=== PATIENT | male | born 1965 | race Caucasian/White ===

== ENCOUNTER 2016-12-30 13:14 | Emergency (ER) | payer MEDICARE, OTHER ==
[~2016-12-30] VITALS: Ht 127 cm; Wt 43.6 kg
[~2016-12-30 13:14] MED LIST: ACET80CH6 OR; ARIP2 PO; CHLO.12%30 MT; FLUV50 PO; FLUV50TA3 PO; LORA10TA PO; LORA10TA7 PO; TAB-TAB PO; [UNRECOGNIZED DRUG - CODE] XX
[2016-12-30 13:16] VITALS: BP 120/74; PULSE 84; RESP 17; TEMP 97.6; O2SAT 97
[2016-12-30] MEDS ORDERED: TRAM50TA PO (15:18)
[2016-12-30] MEDS ORDERED: FLUV50TA PO (15:18)
[2016-12-30] MEDS ORDERED: CLAR10CA3 PO (15:18)
[2016-12-30] MEDS ORDERED: CETACRE5 TOPICAL (15:18)
[2016-12-30] MEDS ORDERED: CEROTAB2 PO (15:18)
[2016-12-30] MEDS ORDERED: NIAC250T3 PO (15:18)
[2016-12-30] MEDS ORDERED: MELO-1 PO (15:18)
[2016-12-30] MEDS ORDERED: LACT3000 PO (15:18)
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
== END 2016-12-30 16:20 | disposition home or self-care (01) ==
LOC: NEPB 13:14 → NEPC 16:20
DX: S01.01XA Laceration without foreign body of scalp, initial encounter (principal); W03.XXXA Other fall on same level due to collision with another person, initial encounter; F03.90 Unspecified dementia, unspecified severity, without behavioral disturbance, psychotic disturbance, mood disturbance, and anxiety; F42.9 Obsessive-compulsive disorder, unspecified
CPT/HCPCS: 12001

== ENCOUNTER 2017-01-08 15:31 | Emergency (ER) | payer MEDICARE, OTHER ==
[~2017-01-08] VITALS: Ht 162.6 cm; Wt 55.0 kg
[~2017-01-08 15:31] MED LIST changes: -ACET80CH6 OR; -ARIP2 PO; +CEROTAB2 PO; +CETACRE5 TOPICAL; -CHLO.12%30 MT; +CLAR10CA3 PO; -FLUV50 PO; +FLUV50TA PO; -FLUV50TA3 PO; +LACT3000 PO; -LORA10TA PO; -LORA10TA7 PO; +MELO-1 PO; +NIAC250T3 PO; -TAB-TAB PO; +TRAM50TA PO; -[UNRECOGNIZED DRUG - CODE] XX
[2017-01-08 15:32] VITALS: BP 131/74; PULSE 88; RESP 18; TEMP 97.8; O2SAT 98
--- NOTE | 2017-01-08 15:53 | PD ---
HPI Chief Complaint: Wound/Suture/Staple Re-Check Time Seen by Provider: 15:52 Travel History International Travel<30 days: No Contact w/Intl Traveler<30days: No Traveled to known affect area: No History of Present Illness HPI 51-year-old male with a history of MR is brought to the emergency department by his caregiver to have staple removed from scalp. 9 days ago patient sustained a small laceration to his posterior scalp and had 1 staple placed. Caregiver states that the wound is been healing well, no discharge or drainage, no fever. No other complaints. PFSH Past Medical History Dementia: Yes (organic brain syndrome) Diminished Hearing: No Neurologic: Yes (MENTAL RETARDATION, APENT SYNDROME) Psychiatric: Yes (OCD) Respiratory: Yes (rhinitis ) Integumentary: Yes (onchychomycosis, ) Immunizations Current: Yes Social History Alcohol Use: No Tobacco Use: No Substance Use: No Allergies-Medications (Allergen,Severity, Reaction): Coded Allergies: Aspirin (Verified Allergy, Mild, 01/08/17) Augmentin (Verified Allergy, Mild, 01/08/17) Keflex (Verified Allergy, Mild, 01/08/17) Terfenadine (Verified Allergy, Mild, 01/08/17) Reported Meds & Prescriptions Reported Meds & Active Scripts Active Reported Claritin (Loratadine) 10 Mg Cap 10 Mg PO DAILY Lactaid (Lactase) 3,000 Unit Tab 6,000 Units PO BID Fluvoxamine (Fluvoxamine Maleate) 50 Mg Tab 50 Mg PO BID Cetaphil (Emollient) 1 Cre Cre 1 Applic TOPICAL DAILY Cerovite Senior (Multiple Vitamins W/ Minerals) 1 Tab Tab 1 Tab PO DAILY Tramadol (Tramadol HCl) 50 Mg Tab 50 Mg PO DAILY Niacin 250 Mg Tab 250 Mg PO HS Meloxicam 15 Mg Tab 15 Mg PO DAILY Review of Systems Except as stated in HPI: all other systems reviewed are Neg Physical Exam Narrative GENERAL: Well-nourished and well-developed male patient in no acute distress. SKIN: Warm and dry. One staple in place to posterior scalp, wound healed well with no erythema, warmth, discharge or drainage, swelling. NEUROLOGICAL: Awake, alert. Cranial nerves are grossly intact. Data Data Last Documented VS Vital Signs Date Time Temp Pulse Resp B/P Pulse Ox O2 Delivery O2 Flow Rate FiO2 01/08/17 15:32 97.8 88 18 131/74 98 MDM Medical Decision Making Medical Screen Exam Complete: Yes Emergency Medical Condition: Yes Differential Diagnosis Staple removal versus wound recheck versus wound care Narrative Course 51-year-old male with a history of MR jamal to the emergency room for evaluation of staple removal. Patient is afebrile, vital signs are stable. Wound has healed well with no signs of infection. One staple was placed 9 days ago. One staple is successfully removed. Patient stable for discharge. Diagnosis Primary Impression: Removal of staple Referrals: Primary Care Physician Patient Instructions: General Instructions, Staple Care (ED) Additional Instructions: Follow-up with your Primary Care Physician. Return to the ED for any acute worsening of symptoms. Med/Other Pt SpecificInfo: No Change to Meds Disposition: 01 DISCHARGE HOME Condition: Stable Nelly Buck Jan 08, 2017 15:53
== END 2017-01-08 16:39 | disposition home or self-care (01) ==
LOC: NEPB 15:31
DX: S01.01XD Laceration without foreign body of scalp, subsequent encounter (principal); X58.XXXD Exposure to other specified factors, subsequent encounter; Z48.02 Encounter for removal of sutures
CPT/HCPCS: 99281

== ENCOUNTER 2017-04-16 11:25 | Emergency (ER) | payer MEDICARE, OTHER ==
[~2017-04-16] VITALS: Ht 160 cm; Wt 50.0 kg
[2017-04-16 11:35] VITALS: BP 132/68; PULSE 88; RESP 17; TEMP 97.8
[2017-04-16] MEDS ORDERED: LIDOCAINE 4% CREAM 5 GM TUBE TOPICAL ONE (12:00)
[2017-04-16] MEDS ORDERED: TETANUS/DIPHTHERIA TOXOID PEDIATRIC 0.5 ML VIAL IM ONE (12:00)
[2017-04-16] MEDS ORDERED: LIDOCAINE HCL 1% 30 ML VIAL INFIL ONE (12:00)
[2017-04-16] MEDS ORDERED: LIDOCAINE HCL 1% PF 30 ML VIAL ONE (12:06)
[2017-04-16] MEDS ORDERED: DIPHTH/TETANUS/ACEL PERTUSSIS (BOOSTER) 0.5 ML VIAL/PFS IM ONE (12:07)
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
[2017-04-16] MEDS ORDERED: ACET325T PO (12:21)
[2017-04-16] MEDS ORDERED: KETAMINE HCL 500 MG/5 ML VIAL IM ONE ×2 (13:00→13:45)
[2017-04-16 13:25] VITALS: O2SAT 100
--- NOTE | 2017-04-16 14:07 | PD ---
Physical Exam Time Seen by Provider: 14:05 Data Data Last Documented VS Vital Signs Date Time Temp Pulse Resp B/P Pulse Ox O2 Delivery O2 Flow Rate FiO2 04/16/17 16:15 85 19 121/93 100 04/16/17 13:25 4.00 04/16/17 11:35 97.8 Room Air Orders Lidocaine 4% Cream (L-M-X 4 Cream) (04/16/17 12:00) Lidocaine 1% Inj (Xylocaine 1% Inj) (04/16/17 12:00) Tetanus-Diphther Tox Peds Inj (Tetanus-D (04/16/17 12:00) Lidocaine Pf 1% Inj (Xylocaine-Mpf 1% In (04/16/17 12:06) Bvif-Xei-Pkfhfc (Booster) Inj (Boostrix (04/16/17 12:07) Ketamine Inj (Ketalar Inj) (04/16/17 13:00) Ketamine Inj (Ketalar Inj) (04/16/17 13:45) Ondansetron Odt (Zofran Odt) (04/16/17 14:45) MDM Medical Record Reviewed: Yes Supervised Visit with VU: No Procedures Procedure Narrative LACERATION LOCATION: Right eyebrow LENGTH: 6 CM NUMBER OF STITCHES/BRYANNA: 5 Warren REPAIR: The area of the laceration was prepped with Betadine and sterilely draped. The laceration was infiltrated with 1% LIDOCAINE. The wound was copiously irrigated and explored without evidence of foreign body, tendon injury or neurovascular injury. The wound was closed using BRYANNA. This was a SINGLE layer repair. A sterile dressing was applied. The patient was advised to keep the dressing clean and dry. Patient tolerated the procedure well. Med/Other Pt SpecificInfo: Prescription(s) given Scripts Bacitracin-Polymyxin B Topical (Polysporin Topical)500-10,000 Unit/Gm Oint1 Applic TOPICAL DIRECTED #1 TUBE Ref 0 Prov:Esther Lombardi 04/16/17 Condition: Stable Esther Lombardi Apr 16, 2017 14:06
[2017-04-16] MEDS ORDERED: ONDANSETRON ODT 4 MG TAB PO ONE (14:45)
[2017-04-16] MEDS ORDERED: MAPA325T PO (15:33)
[2017-04-16] MEDS ORDERED: [UNRECOGNIZED DRUG - CODE] PO (15:33)
[2017-04-16 16:15] VITALS: BP 121/93; PULSE 85; RESP 19; O2SAT 100
[2017-04-16] MEDS ORDERED: BACI28.3 TOPICAL (16:54)
== END 2017-04-16 18:00 | disposition home or self-care (01) ==
LOC: NEPE 11:25
DX: S01.81XA Laceration without foreign body of other part of head, initial encounter (principal); F03.90 Unspecified dementia, unspecified severity, without behavioral disturbance, psychotic disturbance, mood disturbance, and anxiety; Z23 Encounter for immunization; Z86.59 Personal history of other mental and behavioral disorders; Z87.2 Personal history of diseases of the skin and subcutaneous tissue; W01.0XXA Fall on same level from slipping, tripping and stumbling without subsequent striking against object, initial encounter; Y93.01 Activity, walking, marching and hiking; Y92.129 Unspecified place in nursing home as the place of occurrence of the external cause
CPT/HCPCS: 12014; 90471; 90702; 90715; 99156; 99157

== ENCOUNTER 2017-04-22 16:42 | Emergency (ER) | payer MEDICARE, OTHER ==
[~2017-04-22] VITALS: Ht 154.9 cm; Wt 60.0 kg
[~2017-04-22 16:42] MED LIST changes: +BACI28.3 TOPICAL; -LACT3000 PO; +MAPA325T PO; +[UNRECOGNIZED DRUG - CODE] PO
--- NOTE | 2017-04-22 17:25 | PD ---
HPI Chief Complaint: Wound/Suture/Staple Re-Check Time Seen by Provider: 17:25 Travel History International Travel<30 days: No Contact w/Intl Traveler<30days: No Traveled to known affect area: No History of Present Illness HPI 51-year-old male with MR who is nonverbal presents to emergency department for staple removal from right brow laceration. This occurred on April 16. Patient is here for staple removal. Patient is very anxious and uncooperative. He has no other obvious medical complaints or problems at this time. The wound appears well-healed at first inspection. Patient is allergic to aspirin, Augmentin, Keflex, terfenadine. PFSH Past Medical History Dementia: Yes (organic brain syndrome) Diminished Hearing: No Neurologic: Yes (MENTAL RETARDATION, APENT SYNDROME) Psychiatric: Yes (OCD) Respiratory: Yes (rhinitis ) Integumentary: Yes (onchychomycosis, ) Immunizations Current: Yes Social History Alcohol Use: No Tobacco Use: No Substance Use: No Allergies-Medications (Allergen,Severity, Reaction): Coded Allergies: Aspirin (Verified Allergy, Mild, 04/22/17) Augmentin (Verified Allergy, Mild, 04/22/17) Keflex (Verified Allergy, Mild, 04/22/17) Terfenadine (Verified Allergy, Mild, 04/22/17) Reported Meds & Prescriptions Reported Meds & Active Scripts Active Polysporin Topical (Bacitracin-Polymyxin B Topical) 500-10,000 Unit/Gm Oint 1 Applic TOPICAL DIRECTED Reported Dairy Aid (Lactase) 3,000 Unit Tab.chew 6,000 Units PO BID Mapap (Acetaminophen) 325 Mg Tab 650 Mg PO Q4HR PRN Claritin (Loratadine) 10 Mg Cap 10 Mg PO DAILY Fluvoxamine (Fluvoxamine Maleate) 50 Mg Tab 50 Mg PO BID Cetaphil (Emollient) 1 Cre Cre 1 Applic TOPICAL DAILY Cerovite Senior (Multiple Vitamins W/ Minerals) 1 Tab Tab 1 Tab PO DAILY Tramadol (Tramadol HCl) 50 Mg Tab 50 Mg PO DAILY Niacin 250 Mg Tab 250 Mg PO HS Meloxicam 15 Mg Tab 15 Mg PO DAILY Review of Systems ROS Limitations: Clinical Condition, Speech Impaired General / Constitutional: No: Fever Eyes: No: Visual changes HENT: No: Headaches Cardiovascular: No: Chest Pain or Discomfort Respiratory: No: Shortness of Breath Gastrointestinal: No: Abdominal Pain Genitourinary: No: Dysuria Musculoskeletal: No: Pain Skin: No Rash Neurologic: No: Weakness Psychiatric: No: Depression Endocrine: No: Polydipsia Hematologic/Lymphatic: No: Easy Bruising Physical Exam Exam Limitations: Uncooperative Narrative GENERAL: Patient is in no acute distress. SKIN: Warm and dry. Patient is a well healed laceration to the right eyebrow region. Mary Jane are in place. No signs of wound dehiscence or cellulitis. HEAD: Atraumatic. Normocephalic RESPIRATORY: No accessory muscle use. pable. MUSCULOSKELETAL: Extremities without clubbing, cyanosis, or edema. Patient has obvious defect deformities to both hands. No acute findings are noted. NEUROLOGICAL: Awake and alert. No obvious cranial nerve deficits. Motor grossly within normal limits. Five out of 5 muscle strength in the arms and legs. Normal speech. MDM Medical Decision Making Medical Screen Exam Complete: Yes Emergency Medical Condition: Yes Differential Diagnosis Facial laceration. Wound check. Staple removal. Narrative Course Patient is medically stable at time of exam. Mary Jane are removed with assistance from nursing staff. No further medical treatment is felt warranted at this time. Diagnosis Primary Impression: Removal of staple Additional Impression: Facial laceration Qualified Code: S01.81XD - Facial laceration, subsequent encounter Patient Instructions: General Instructions Med/Other Pt SpecificInfo: No Meds Exist/No RX given, Wound Care Disposition: 01 DISCHARGE HOME Condition: Stable Kaleb Caba Apr 22, 2017 17:25
== END 2017-04-22 18:05 | disposition home or self-care (01) ==
LOC: NEPK 16:42
DX: S01.81XD Laceration without foreign body of other part of head, subsequent encounter (principal); X58.XXXD Exposure to other specified factors, subsequent encounter; Z48.02 Encounter for removal of sutures
CPT/HCPCS: 99281

== ENCOUNTER 2017-06-05 15:44 | Emergency (ER) | payer MEDICARE, OTHER ==
[~2017-06-05] VITALS: Ht 152.4 cm; Wt 52.0 kg
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
[2017-06-05] MEDS ORDERED: MIDAZOLAM HCL 2 MG/2 ML VIAL IV PUSH ONE ×2 (16:15→17:00)
--- NOTE | 2017-06-05 16:44 | PD ---
Physical Exam Date Seen by Provider: Jun 05, 2017 Time Seen by Provider: 16:43 Narrative For full history and physical examination please see previous provider's note. I was asked to repair laceration to right eyebrow. Data Data Orders Midazolam Inj (Versed Inj) (06/05/17 16:15) [facility] Supervised Visit with VU: Yes Procedures Procedure Narrative LACERATION LOCATION: Right eyebrow LENGTH: 6 cm NUMBER OF STITCHES/MARY JANE: 12 Mary Jane REPAIR: The area of the laceration was prepped with Betadine and sterilely draped. The laceration was infiltrated with 1% Xylocaine. The wound was copiously irrigated and explored without evidence of foreign body, tendon injury or neurovascular injury. The wound was closed using mary jane. This was a 1 layer repair. A sterile dressing was applied. The patient was advised to keep the dressing clean and dry. Patient tolerated the procedure well. Elsa Diaz Jun 05, 2017 16:44
[2017-06-05 16:52] VITALS: BP 147/89; PULSE 95; RESP 20; O2SAT 99
[2017-06-05] MEDS ORDERED: LOPE2TAB PO (17:01)
[2017-06-05] MEDS ORDERED: MUPI2OIN TOPICAL (17:01)
[2017-06-05] MEDS ORDERED: CHLO.12%30 (17:01)
[2017-06-05] MEDS ORDERED: BALM TOPICAL (17:01)
[2017-06-05] MEDS ORDERED: NICO250C PO (17:01)
[2017-06-05] MEDS ORDERED: CLAR10TA7 PO (17:01)
[2017-06-05] MEDS ORDERED: GUAI200T4 PO (17:01)
[2017-06-05] MEDS ORDERED: CEPH-460 PO (17:14)
[2017-06-05] MEDS ORDERED: BACT800T5 PO (17:48)
== END 2017-06-05 17:56 | disposition home or self-care (01) ==
LOC: NEPD 15:44
DX: S01.81XA Laceration without foreign body of other part of head, initial encounter (principal); F79 Unspecified intellectual disabilities; Q87.0 Congenital malformation syndromes predominantly affecting facial appearance; F09 Unspecified mental disorder due to known physiological condition; F42.9 Obsessive-compulsive disorder, unspecified; J31.0 Chronic rhinitis; W22.01XA Walked into wall, initial encounter; Z79.899 Other long term (current) drug therapy
CPT/HCPCS: 12014; 96374; 99284; J2250

== ENCOUNTER 2017-06-16 09:46 | Emergency (ER) | payer MEDICARE, OTHER ==
[~2017-06-16] VITALS: Ht 152.4 cm; Wt 55.0 kg
[~2017-06-16 09:46] MED LIST changes: -BACI28.3 TOPICAL; +BACT800T5 PO; +BALM TOPICAL; +CEPH-460 PO; +CHLO.12%30; -CLAR10CA3 PO; +CLAR10TA7 PO; +GUAI200T4 PO; +LOPE2TAB PO; +MUPI2OIN TOPICAL; -NIAC250T3 PO; +NICO250C PO
[2017-06-16 09:47] VITALS: BP 109/70; PULSE 106; RESP 14; TEMP 98.2; O2SAT 99
[2017-06-16] MEDS ORDERED: [UNRECOGNIZED DRUG - REMARK] (09:57)
[2017-06-16] MEDS ORDERED: [UNRECOGNIZED DRUG - REMARK] (09:58)
--- NOTE | 2017-06-16 10:15 | PD ---
HPI Chief Complaint: Wound/Suture/Staple Re-Check Time Seen by Provider: 09:55 Travel History International Travel<30 days: No Contact w/Intl Traveler<30days: No Traveled to known affect area: No History of Present Illness HPI This is a 51-year-old male who has a history of developmental delay who presents to the emergency department for suture removal. On June 05 he had a laceration to his right eyebrow and had nai placed in the emergency department. He's been healing well since then with no fevers chills or drainage. He doesn't provide any history but is accompanied by someone from his custodial. PFSH Past Medical History Dementia: Yes (organic brain syndrome) Diminished Hearing: No Neurologic: Yes (MENTAL RETARDATION, APENT SYNDROME) Psychiatric: Yes (OCD) Respiratory: Yes (rhinitis ) Integumentary: Yes (onchychomycosis, ) Immunizations Current: Yes Social History Alcohol Use: No Tobacco Use: No Substance Use: No Allergies-Medications (Allergen,Severity, Reaction): Coded Allergies: Aspirin (Verified Allergy, Mild, 06/16/17) Augmentin (Verified Allergy, Mild, 06/16/17) Keflex (Verified Allergy, Mild, 06/16/17) Terfenadine (Verified Allergy, Mild, 06/16/17) Reported Meds & Prescriptions Reported Meds & Active Scripts Active Reported [unk bp med] DAILY [unk cholest] Guaifenesin 200 Mg Tablet 200 Mg PO Q4HR Cetaphil (Emollient) 1 Cre Cre 1 Applic TOPICAL DAILY Apply to arms, back and legs every evening after shower Review of Systems ROS Limitations: Poor Historian Physical Exam Narrative GENERAL: Well-appearing, no acute distress, nontoxic SKIN: 12 nai in right eyebrow, laceration is well healing with no erythema or discharge from the wound. HEAD: Atraumatic. Normocephalic. ENT: No nasal bleeding or discharge. Moist mucous membranes MUSCULOSKELETAL: No obvious deformities. No edema. NEUROLOGICAL:awake and alert. non-verbal. moving al extremities. Data Data Last Documented VS Vital Signs Date Time Temp Pulse Resp B/P Pulse Ox O2 Delivery O2 Flow Rate FiO2 06/16/17 09:47 98.2 106 14 109/70 99 MDM Medical Decision Making Medical Screen Exam Complete: Yes Emergency Medical Condition: Yes Differential Diagnosis Suture removal, wound infection Narrative Course This is a 51-year-old male with a history developmental delay who presents to the emergency department with need for staple removal. Patient was restrained with a bed sheet. He didn't require any IV sedation. We removed the nai without difficulty. He tolerated the procedure well. His laceration looks to be well repaired with no infection. Diagnosis Primary Impression: Removal of staple Patient Instructions: General Instructions Additional Instructions: If you develop fevers, redness, swelling, or discharge from your wound return to the emergency room. Disposition: 01 DISCHARGE HOME Condition: Stable Macy Velez MD Jun 16, 2017 10:15
== END 2017-06-16 10:20 | disposition home or self-care (01) ==
LOC: NEPE 09:46
DX: Z48.02 Encounter for removal of sutures (principal); S01.111D Laceration without foreign body of right eyelid and periocular area, subsequent encounter; X58.XXXD Exposure to other specified factors, subsequent encounter; F79 Unspecified intellectual disabilities; F09 Unspecified mental disorder due to known physiological condition
CPT/HCPCS: 96372

== ENCOUNTER 2017-06-17 12:01 | Emergency (ER) | payer MEDICARE, OTHER ==
[~2017-06-17 12:01] MED LIST changes: -BACT800T5 PO; -BALM TOPICAL; -CEPH-460 PO; -CEROTAB2 PO; -CHLO.12%30; -CLAR10TA7 PO; -FLUV50TA PO; -LOPE2TAB PO; -MAPA325T PO; -MELO-1 PO; -MUPI2OIN TOPICAL; -NICO250C PO; -TRAM50TA PO; -[UNRECOGNIZED DRUG - CODE] PO; +[UNRECOGNIZED DRUG - REMARK]; +[UNRECOGNIZED DRUG - REMARK]
--- NOTE | 2017-06-17 12:10 | PD ---
Physical Exam Date Seen by Provider: Jun 17, 2017 Time Seen by Provider: 12:06 Narrative 51 y/o male with Hx MR presents with Hx. Fall. patient tripped and fell hitting his right knee and right scalp. No LOC. No wounds. Patient Non-Verbal. Vital signs reviewed. Patient stable. Awaiting Bed placement. [facility] Medical Record Reviewed: Yes Supervised Visit with VU: Yes Condition: Stable Kaleb Caba Jun 17, 2017 12:09
[2017-06-17 12:29] VITALS: BP 124/66; PULSE 89; RESP 22; TEMP 98.2; O2SAT 97
--- NOTE | 2017-06-17 14:17 | PD ---
HPI Chief Complaint: Fall Time Seen by Provider: 14:17 Travel History International Travel<30 days: No Contact w/Intl Traveler<30days: No Traveled to known affect area: No History of Present Illness HPI 51 YO M with PMH of profound presents to the ED for evaluation after a witnessed fall approximate 3 hours ago. Caregiver is at bedside and provides the history. She states that the patient fell in a doorway, struck his head on to an industrial tile floor. No loss of consciousness. Patient has behaved normally since the accident. She states that he also struck his right knee. Patient is unable to provide any history. PFSH Past Medical History Dementia: Yes (organic brain syndrome) Diminished Hearing: No Neurologic: Yes (MENTAL RETARDATION, APENT SYNDROME) Psychiatric: Yes (OCD) Respiratory: Yes (rhinitis ) Integumentary: Yes (onchychomycosis, ) Immunizations Current: Yes Social History Alcohol Use: No Tobacco Use: No Substance Use: No Allergies-Medications (Allergen,Severity, Reaction): Coded Allergies: Aspirin (Verified Allergy, Mild, 06/17/17) Augmentin (Verified Allergy, Mild, 06/17/17) Keflex (Verified Allergy, Mild, 06/17/17) Terfenadine (Verified Allergy, Mild, 06/17/17) Reported Meds & Prescriptions Reported Meds & Active Scripts Active Reported [unk bp med] DAILY [unk cholest] Guaifenesin 200 Mg Tablet 200 Mg PO Q4HR Cetaphil (Emollient) 1 Cre Cre 1 Applic TOPICAL DAILY Apply to arms, back and legs every evening after shower Review of Systems ROS Limitations: Uncooperative Except as stated in HPI: all other systems reviewed are Neg Physical Exam Exam Limitations: Uncooperative Narrative GENERAL: Pacing around the exam room, in no acute distress. SKIN: Focused skin assessment warm/dry. Well healing suture line in the right eyebrow. HEAD: Small contusion above the left ear. EYES: No scleral icterus. No injection or drainage. LUNGS: Clear to auscultation bilaterally. MUSCULOSKELETAL: No cyanosis, or edema. Deformities of bilateral hands. Abraded areas on bilateral hands. Patient is observed to chronically pick. Patient is ambulating around the exam room. Caregiver states this is his normal gait. Data Data Last Documented VS Vital Signs Date Time Temp Pulse Resp B/P Pulse Ox O2 Delivery O2 Flow Rate FiO2 06/17/17 14:30 Room Air 06/17/17 12:29 98.2 89 22 124/66 97 Orders Knee, Complete (4vws) (06/17/17 ) [facility] Medical Decision Making Medical Screen Exam Complete: Yes Emergency Medical Condition: Yes Differential Diagnosis Musculoskeletal pain versus fracture versus internal derangement versus abrasion versus laceration versus closed head injury versus less likely ICH versus other Narrative Course 51 YO M with PMH of profound MR presents to the ED for evaluation after a witnessed fall approximate 3 hours ago. Caregiver is at bedside and provides the history. She states that the patient fell in a doorway, struck his head on to an industrial tile floor. No loss of consciousness. Patient has behaved normally since the accident. She states that he also struck his right knee. Patient is unable to provide any history. Vitals reviewed. On physical exam the patient is ambulating around the exam room, he is uncooperative. There is a small contusion above the left ear and chronic appearing abrasions on bilateral hands. Patient is observed to chronically pick these areas of abrasion. He will not allow me to palpate the knee. X-ray reveals osteochondral fracture lateral condyle distal right femur. Given the patient's state I do not think he would be able to use a walker or be able to be stopped from ambulating. I don't feel CT imaging of the brain is warranted given mechanism of injury and patient's normal behavior over the last 3 hours. Caregiver is instructed to treat symptomatically as the patient tolerates, follow-up with orthopedics. The patient is stable and discharged home. Diagnosis Primary Impression: Closed osteochondral fracture of distal end of femur Qualified Code: S72.491A - Closed osteochondral fracture of distal end of right femur, initial encounter Additional Impression: Fall Qualified Code: W19.XXXA - Fall, initial encounter Referrals: Real Irving MD Patient Instructions: General Instructions, Knee Pain (ED) Additional Instructions: Rest, ice, elevate the leg as tolerated by the patient. Inflammatories every 6-8 hours as needed for pain. Follow-up with the orthopedist as discussed. Return to the ED for any urgent or emergent medical condition. Disposition: 01 DISCHARGE HOME Condition: Stable Yudi Sharma Jun 17, 2017 14:17
--- NOTE | 2017-06-17 14:24 | RADRPT ---
EXAM DATE/TIME: 06/17/2017 13:58 [facility] COMPARISON: No previous studies available for comparison. INDICATIONS : Patient is having pain in his knee after falling this morning. MEDICAL HISTORY : organic brain syndrome, APERT syndrome SURGICAL HISTORY : None. ENCOUNTER: Initial ACUITY: 1 day PAIN SCORE: Non-responsive. LOCATION: Right Knee FINDINGS: A subcentimeter osteochondral defect is identified along the articulating surface of the lateral femo ral condyle. The knee joint otherwise appears intact. There is no ascitic joint effusion. CONCLUSION: Osteochondral abnormality involving the lateral femoral articulating surface most likely representing a transchondral fracture. Joel Delarosa MD on June 17, 2017 at 14:20 Board Certified Radiologist. This report was verified electronically.
== END 2017-06-17 14:59 | disposition home or self-care (01) ==
LOC: NEPD 12:01
DX: S72.491A Other fracture of lower end of right femur, initial encounter for closed fracture (principal); W19.XXXA Unspecified fall, initial encounter; G93.1 Anoxic brain damage, not elsewhere classified; F79 Unspecified intellectual disabilities
CPT/HCPCS: 73564; 99283

== ENCOUNTER 2018-12-30 11:49 | Observation (INO) ==
[2018-12-30] MEDS ORDERED: Acetaminophen 325 MG Tablet PO ONE (13:36)
--- NOTE | 2018-12-30 15:24 | ED ---
HPI General Chief complaint: Skin/Abscess/Foreign Body Stated complaint: skin rash complaint Time Seen by Provider: 12/30/18 13:08 Source: other (hourly caregiver) Mode of arrival: wheelchair Limitations: other (medical condition) History of Present Illness HPI narrative: Patient is nonverbal. This is a 53-year-old male who is mentally and physically disabled presents to the emergency department with his cargo and container inspector from a [facility] with complaint of a rash to his left upper arm that he woke up with this morning. On evaluation the patient also has a large "rash " to his left flank area. The cargo and container inspector has the [facility] nurse on the phone on speaker and she is concerned this is a shingles rash. She states the patient went to bed fine last night with no concerns, and woke up this morning with a rash. Says he was showered and bathed by the staff and then brought in to the ER for evaluation. Nurse on the phone endorses that he has had normal activity. Denies any fever or vomiting. No treatments tried. Denies any new exposures to lotions, soaps, detergents, medications, foods, environmental exposures. Has not and does not appear to be in any respiratory distress. Symptoms are moderate in severity. No known aggravating or relieving factors. Allergies as listed on the chart. Primary CARE providers Dr. Gardner. Related Data Home Medications Medication Instructions Recorded Confirmed aripiprazole 5 mg PO DAILY 12/30/18 12/30/18 celecoxib 200 mg PO DAILY 12/30/18 12/30/18 hydrocodone-acetaminophen 1 tab PO DAILY 12/30/18 12/30/18 lactase [Lactaid] 6,000 unit PO QID 12/30/18 12/30/18 loratadine 10 mg PO DAILY 12/30/18 12/30/18 jaugetovfnhb-ycdz-bfpgn acid 1 tab PO DAILY 12/30/18 12/30/18 [Cerovite Advanced Formula] tramadol 50 mg PO DAILY 12/30/18 12/30/18 Previous Rx's Medication Instructions Recorded silver sulfadiazine [Silvadene] 1 applic TOPICAL BID PRN #400 g 12/30/18 sulfamethoxazole-trimethoprim 1 tab PO BID #10 tab 01/01/19 [Bactrim DS] Allergies Allergy/AdvReac Type Severity Reaction Status Date / Time amoxicillin Allergy Mild unkown Verified 12/30/18 13:15 aspirin Allergy Mild unkown Verified 12/30/18 13:15 cephalexin Allergy Mild unkown Verified 12/30/18 13:15 clavulanic acid Allergy Mild unkown Verified 12/30/18 13:15 terfenadine Allergy Mild unknown Verified 12/30/18 13:15 Review of Systems ROS Unobtainable ROS Unobtainable: unobtainable due to mental condition [facility] Medical History Medical History Allergic rhinitis (Acute) Apert syndrome (Acute) OCD (obsessive compulsive disorder) (Acute) Social History Social History Substance History: No History of Abuse Smoking Status: Never smoker How Often Do You Have a Drink Containing Alcohol: Never Recent Travel in [facility] within the Last 8 Weeks: No Recent Out of Country Travel within the Last 8 Weeks: No Immunization History Tetanus Immunization: Unsure Exam Narrative Exam Narrative: GENERAL: male patient, in no acute distress; mentally and physically disabled; nonverbal SKIN: Warm and dry. Slightly raised, large reddened area to the left upper arm , extending to the left lateral trunk/flank area; moist and dry areas; warm to touch; seems to be tender to the touch; appears to be consistent with first- degree and second-degree burn. Skin changes do not extend into the armpit and edges of the skin changes define the borders of the reddened areas. Skin changes stop abruptly with a well-defined line at the top level of the patient' s underwear and then skin changes start again to the left thigh where the bottom of the underwear lay; skin changes to the left thigh are not as severe as the left upper arm and left trunk, but appear to also be consistent with first-degree burn. HEAD: Atraumatic. Normocephalic. EYES: Pupils equal and round. No scleral icterus. No injection or drainage. ENT: Mucosa pink and moist. Airway patent. NECK: Trachea midline. CARDIOVASCULAR: Regular rate. RESPIRATORY: No accessory muscle use. GASTROINTESTINAL: Flat. MUSCULOSKELETAL: No obvious deformities. No clubbing. No cyanosis. No edema. NEUROLOGICAL: Awake and alert. PSYCHIATRIC: Nonverbal; mentally and physically disabled Course Initial Documented Vital Signs Temperature 99 F 12/30/18 12:57 Pulse Rate 104 H 12/30/18 12:57 Respiratory Rate 20 12/30/18 12:57 Blood Pressure 140/63 12/30/18 12:57 Last Documented Vital Signs Temperature 99.0 F 12/31/18 16:00 Pulse Rate 116 H 01/01/19 08:00 Respiratory Rate 18 01/01/19 08:00 Blood Pressure 116/65 01/01/19 08:00 Pulse Oximetry 95 01/01/19 01:00 Medical Decision Making VU Attestation VU supervised visit: Yes Attestation: I, Dr. Jones, have reviewed the advance practice practitioner' s documentation and am in agreement, met with the patient face to face, made the diagnosis, and the medical decision making was done by me. The patient was initially evaluated by nelly Leggett. Please see their complete history and physical. MDM Narrative Medical decision making narrative: This is a 53-year-old male whom is mentally and physically challenged and nonverbal who presents with a cargo and container inspector from the [facility] with concern of skin changes. To me the skin changes appear to be consistent with first and second-degree burn. I had Dr. Jones, my attending physician, evaluate the skin changes and he agrees they appear to be consistent with a burn also. Tylenol ordered and administered. Silvadene cream ordered and applied to the area. DCF will be contacted secondary to physical exam findings, concern findings are consistent with burn, and patient' s mental and physical incapacity. I discussed contacting DCF with the cargo and container inspector and she says we have to do what we have to do. She then stated "take your time because the state is in our facility right now." DCF notified by the registered nurse and was on hold for 10 minutes so the case was transferred to case management and DCF will be being contacted by case management. 1533: Customer Development Manager from the [facility] came and asked if the patient could have food. Diet ordered. Customer Development Manager then proceeded to tell me she spoke with the nurse recreation establishment manager at the facility and they did change detergents. I still do not feel the physical exam findings of the skin changes are consistent with change in detergents and does not appear to be consistent with a contact dermatitis. 1645: I spoke with Sweta Parkinson, senior java programmer analyst from the [facility] and updated her on the patient status. 1725: I spoke with Dr. Alvarado and patient will be admitted for social admission. Report given. Medical Screen Exam Complete: Yes Emergency Medical Condition: Yes Differential Diagnosis Differential Diagnosis: First-degree burn, second-degree burn, chemical burn, contact dermatitis Lab Data Result diagrams: 12/31/18 05:45 12/31/18 05:45 Lab Results 12/30/18 12/30/18 12/30/18 Range/Units 18:20 18:20 18:20 WBC 10.0 (4.0-11.0) th/mm3 RBC 5.10 (4.50-5.90) mil/mm3 Hgb 15.7 (13.0-17.0) gm/dL Hct 46.4 (39.0-51.0) % MCV 90.9 (80.0-100.0) fL MCH 30.8 (27.0-34.0) pg MCHC 33.9 (32.0-36.0) % RDW 13.3 (11.6-17.2) % Plt Count 252 (150-450) th/mm3 MPV 8.6 (7.0-11.0) fL Prelim Diff (Auto) Neut % (Auto) 79.6 H (16.0-70.0) % Lymph % (Auto) 11.4 (9.0-44.0) % [place] % (Auto) 8.2 H (0.0-8.0) % Eos % (Auto) 0.4 (0.0-4.0) % Baso % (Auto) 0.4 (0.0-2.0) % Neut # (Auto) 8.0 H (1.8-7.7) th/mm3 Lymph # (Auto) 1.1 (1.0-4.8) th/mm3 [place] # (Auto) 0.8 (0.0-0.9) th/mm3 Eos # (Auto) 0.0 (0.0-0.4) th/mm3 Baso # (Auto) 0.0 (0.0-0.2) th/mm3 WBC Differential . Diff Scan Differential Comment Auto diff final ESR 1 (0-20) mm/hr Sodium 139 (136-145) meq/L Potassium 4.3 (3.5-5.1) meq/L Chloride 103 (98-107) meq/L Carbon Dioxide 29.5 (21.0-32.0) meq/L Anion Gap 7 (5-15) meq/L BUN 17 (7-18) mg/dL Creatinine 0.55 L (0.60-1.30) mg/dL Estimated GFR Greater than 89 (>89) mL/min Random Glucose 110 H (74-106) mg/dL Calcium 8.9 (8.5-10.1) mg/dL Total Bilirubin 0.8 (0.2-1.0) mg/dL AST 17 (15-37) U/L ALT 33 (12-78) U/L Alkaline Phosphatase 122 H (45-117) U/L Total Creatine Kinase 67 71 (39-308) U/L C-Reactive Protein 3.70 H (0.00-0.30) mg/dL Total Protein 7.5 (6.4-8.2) g/dL Albumin 3.7 (3.4-5.0) g/dL 12/31/18 12/31/18 Range/Units 05:45 05:45 WBC 8.3 (4.0-11.0) th/mm3 RBC 4.93 (4.50-5.90) mil/mm3 Hgb 15.4 (13.0-17.0) gm/dL Hct 44.8 (39.0-51.0) % MCV 90.7 (80.0-100.0) fL MCH 31.2 (27.0-34.0) pg MCHC 34.4 (32.0-36.0) % RDW 13.4 (11.6-17.2) % Plt Count 226 (150-450) th/mm3 MPV 9.0 (7.0-11.0) fL Prelim Diff (Auto) Slide review pending Neut % (Auto) 79.5 H (16.0-70.0) % Lymph % (Auto) 10.5 (9.0-44.0) % [place] % (Auto) 9.1 H (0.0-8.0) % Eos % (Auto) 0.7 (0.0-4.0) % Baso % (Auto) 0.2 (0.0-2.0) % Neut # (Auto) 6.6 (1.8-7.7) th/mm3 Lymph # (Auto) 0.9 L (1.0-4.8) th/mm3 [place] # (Auto) 0.8 (0.0-0.9) th/mm3 Eos # (Auto) 0.1 (0.0-0.4) th/mm3 Baso # (Auto) 0.0 (0.0-0.2) th/mm3 WBC Differential . Diff Scan Auto diff confirmed Differential Comment . ESR (0-20) mm/hr Sodium 138 (136-145) meq/L Potassium 4.4 (3.5-5.1) meq/L Chloride 106 (98-107) meq/L Carbon Dioxide 24.1 (21.0-32.0) meq/L Anion Gap 8 (5-15) meq/L BUN 15 (7-18) mg/dL Creatinine 0.48 L (0.60-1.30) mg/dL Estimated GFR Greater than 89 (>89) mL/min Random Glucose 80 (74-106) mg/dL Calcium 8.7 (8.5-10.1) mg/dL Total Bilirubin 0.8 (0.2-1.0) mg/dL AST 26 (15-37) U/L ALT 27 (12-78) U/L Alkaline Phosphatase 109 (45-117) U/L Total Creatine Kinase (39-308) U/L C-Reactive Protein (0.00-0.30) mg/dL Total Protein 6.9 D (6.4-8.2) g/dL Albumin 3.4 (3.4-5.0) g/dL Discharge Plan Discharge Disposition Patient Disposition: ED Admit(ED Internal Use Only) Discharge Condition Condition: Stable Discharge Order Discharge Orders: Discharge Order (Routine); Ordered 01/01/19 Ordered By: Kennedy Alvarado ED Use Only Admit Order (Routine); Ordered 12/30/18 Ordered By: Nelly Leggett Discharge Details Anticipated Discharge Date: 01/01/19 Diagnosis: Burn of second degree of trunk, Second degree burn of left upper arm, First degree burn of left thigh Physicians Team ED Provider: Bayron Jones ED Midlevel Provider: Nelly Leggett Primary Care Provider: Foster Gardner Attending Provider: Kennedy Alvarado Status ED Status: Left Department Discharge Information Discharge Date/Time: 12/30/18 18:50
[2018-12-30] MEDS ORDERED: Acetaminophen 325 MG Tablet PO PRN (17:43)
--- NOTE | 2018-12-30 18:07 | P.HPIM ---
History of Present Illness Primary Care Physician: Foster Gardner Chief Complaint: Rash History of Present Illness: The patient is a 53-year-old male past medical history of Apert syndrome and OCD who is presenting to the hospital with a rash. The patient has been in a jail for the past 10 years. At 6 AM staff had noticed a rash involving the patient's left arm and abdomen. They thought it might be secondary to shingles. The patient was brought to the hospital for further evaluation. The patient is nonverbal and the history comes from the jail staff. The patient had not been exposed to any chemicals. They do not believe the patient could have been burned. They did not see anything resembling scabies. The patient has not been around other sick people. He has not had any fevers. He has not traveled anywhere recently. There has been a new detergent used on the bedding. The only new medication the patient was started on was Celebrex on December 03 for chronic hip pain. In the emergency department DCF was contacted over concerns that the rashes may be reno. He did get an application of silver sulfadine. Family history is unknown Review of Systems Review of Systems: all other systems reviewed are negative ROS Unobtainable: unobtainable due to mental condition [facility] Medical History Medical History Allergic rhinitis (Acute) Apert syndrome (Acute) OCD (obsessive compulsive disorder) (Acute) Social History Social History Substance History: No History of Abuse Smoking Status: Never smoker How Often Do You Have a Drink Containing Alcohol: Never Recent Travel in [facility] [[email or web address] within the Last 8 Weeks: No Recent Out of Country Travel within the Last 8 Weeks: No Immunization History Tetanus Immunization: Unsure Medications and Allergies Allergies Allergy/AdvReac Type Severity Reaction Status Date / Time amoxicillin Allergy Mild unkown Verified 12/30/18 13:15 aspirin Allergy Mild unkown Verified 12/30/18 13:15 cephalexin Allergy Mild unkown Verified 12/30/18 13:15 clavulanic acid Allergy Mild unkown Verified 12/30/18 13:15 terfenadine Allergy Mild unknown Verified 12/30/18 13:15 Home Medications Medication Instructions Recorded Confirmed Type aripiprazole 5 mg PO DAILY 12/30/18 12/30/18 History celecoxib 200 mg PO DAILY 12/30/18 12/30/18 History hydrocodone-acetaminophen 1 tab PO DAILY 12/30/18 12/30/18 History lactase [Lactaid] 6,000 unit PO QID 12/30/18 12/30/18 History loratadine 10 mg PO DAILY 12/30/18 12/30/18 History vhbspljfawoy-wabt-izmia acid 1 tab PO DAILY 12/30/18 12/30/18 History [Cerovite Advanced Formula] tramadol 50 mg PO DAILY 12/30/18 12/30/18 History Active Medications: Active Medications Acetaminophen (Tylenol) 650 mg PO Q4H PRN PRN Reason: Temp > 100.4, p 1-2 Aripiprazole (Abilify) 5 mg PO DAILY JASPER Sodium Chloride (Ns Inj) 1,000 mls @ 100 mls/hr IV.CONT .Q10H JASPER Stop: 12/31/18 13:44 Loratadine (Claritin) 10 mg PO DAILY JASPER Ondansetron HCl (Zofran Inj) 4 mg IV.PUSH Q6H PRN PRN Reason: NAUSEA OR VOMITING Senna/Docusate Sodium (My-Colace) 1 tab PO BID JASPER Sodium Chloride (Ns Flush) 2 ml IV.FLUSH BID JASPER Sodium Chloride (Ns Flush) 2 ml IV.FLUSH PRN PRN PRN Reason: FLUSH AFTER USING IV ACCESS Physical Exam Vital signs: Vital Signs 12/30/18 12:57 Temperature 99 F Pulse Rate 104 H Respiratory Rate 20 Blood Pressure 140/63 Intake & Output 12/29/18 12/30/18 12/30/18 18:59 06:59 18:59 Weight 54.431 kg Narrative: GENERAL: Mentally and physically disabled. In NAD. SKIN: Slightly raised, large reddened area to the left upper arm, extending to the left lateral trunk/flank area; moist and dry areas; warm to touch; seems to be tender to the touch; linear abrasions noted within the erythema. HEAD: Atraumatic. Normocephalic. EYES: Pupils equal and round. No scleral icterus. No injection or drainage. ENT: Mucosa pink and moist. Airway patent. NECK: Trachea midline. CARDIOVASCULAR: Regular rate. RESPIRATORY: No accessory muscle use. GASTROINTESTINAL: Not distended. MUSCULOSKELETAL: No obvious deformities. No clubbing. No cyanosis. No edema. NEUROLOGICAL: Awake and alert. Nonverbal. Moving upper and lower extremities. Caprini VTE Risk Assessment Caprini VTE Risk Assessment: Moderate/High Risk (score >= 2) Caprini Risk Assessment Model: Point Value = 1 Point Value = 2 Point Value = 3 Point Value = 5 Age 41-60 Minor surgery BMI > 25 kg/m2 Swollen legs Varicose veins or History of unexplained or recurrent spontaneous Oral contraceptives or hormone replacement Sepsis (< 1 month) Serious lung disease, including pneumonia (< 1 month) Abnormal pulmonary function Acute myocardial infarction Congestive heart failure (< 1 month) History of inflammatory bowel disease Medical patient at bed rest Age 61-74 Arthroscopic surgery Major open surgery (> 45 min) Laparoscopic surgery (> 45 min) Malignancy Confined to bed (> 72 hours) Immobilizing plaster cast Central venous access Age >= 75 History of VTE Family history of VTE Factor V Leiden Prothrombin [id number] Lupus anticoagulant Anticardiolipin antibodies Elevated serum homocysteine Heparin-induced thrombocytopenia Other congenital or acquired thrombophilia Stroke (< 1 month) Elective arthroplasty Hip, pelvis, or leg fracture Acute spinal cord injury (< 1 month) Prophylaxis Regimen: Total Risk Factor Score Risk Level Prophylaxis Regimen 0-1 Low Early ambulation 2 Moderate Order ONE of the following: *Sequential Compression Device (SCD) *Heparin 5000 units SQ BID 3-4 Higher Order ONE of the following medications: *Heparin 5000 units SQ TID *Enoxaparin/Lovenox 40 mg SQ daily (WT < 150 kg, CrCl > 30 mL/min) *Enoxaparin/Lovenox 30 mg SQ daily (WT < 150 kg, CrCl > 10-29 mL/min) *Enoxaparin/Lovenox 30 mg SQ BID (WT < 150 kg, CrCl > 30 mL/min) AND/OR *Sequential Compression Device (SCD) 5 or more Highest Order ONE of the following medications: *Heparin 5000 units SQ TID (Preferred with Epidurals) *Enoxaparin/Lovenox 40 mg SQ daily (WT < 150 kg, CrCl > 30 mL/min) *Enoxaparin/Lovenox 30 mg SQ daily (WT < 150 kg, CrCl > 10-29 mL/min) *Enoxaparin/Lovenox 30 mg SQ BID (WT < 150 kg, CrCl > 30 mL/min) AND *Sequential Compression Device (SCD) Assessment and Plan Plan Rash Involving the left upper extremity and left flank. ? exfoliative dermatitis secondary to Celebrex use? -check CBC, CMP, CPK, ESR and CRP. -blood cultures x 2. -IVFs. -Triamcinolone cream. -pain control and Benadryl as needed. -DCF has started a case as there were concerns that the rash may be first or second degree reno. Case management has been consulted. Tachycardia Likely s/t rash. -IVFs. -Pain control. -check an EKG. Apert syndrome Chronic, nonverbal, lives in a jail. -PT/OT/ST. -on pureed diet. PPx: SCDs
[2018-12-30] MEDS ORDERED: Morphine Sulfate Inj 2 MG/ML Vial IV.PUSH PRN (18:10)
[2018-12-30 19:03] LABS: Baso % (Auto) 0.4 % (0.0-2.0); Eos % (Auto) 0.4 % (0.0-4.0); Hematocrit 46.4 % (39.0-51.0); Hemoglobin 15.7 gm/dL (13.0-17.0); Lymph # (Auto) 1.1 th/mm3 (1.0-4.8); Lymph % (Auto) 11.4 % (9.0-44.0); Mean Corpuscular HGB Conc 33.9 % (32.0-36.0); Mean Corpuscular Hemoglobin 30.8 pg (27.0-34.0); Mean Corpuscular Volume 90.9 fL (80.0-100.0); Mean Platelet Volume 8.6 fL (7.0-11.0); Mono # (Auto) 0.8 th/mm3 (0.0-0.9); Mono % (Auto) 8.2 % (0.0-8.0); Neut % (Auto) 79.6 % (16.0-70.0); Platelet Count 252 th/mm3 (150-450); Red Cell Distribution Width 13.3 % (11.6-17.2)
[2018-12-30 19:19] LABS: Alanine Aminotransferase 33 U/L (12-78); Albumin 3.7 g/dL (3.4-5.0); Anion Gap 7 meq/L (5-15); Aspartate Aminotransferase 17 U/L (15-37); Blood Urea Nitrogen 17 mg/dL (7-18); Calcium 8.9 mg/dL (8.5-10.1); Carbon Dioxide 29.5 meq/L (21.0-32.0); Chloride 103 meq/L (98-107); Glomerular Filtration Rate Greater Than 89 mL/min (>89); Glucose,Random 110 mg/dL (74-106); Potassium 4.3 meq/L (3.5-5.1); Sodium 139 meq/L (136-145)
[2018-12-30 19:21] LABS: Erythrocyte Sedimentation Rate 1 mm/hr (0-20)
[2018-12-30 19:22] LABS: Alkaline Phosphatase 122 U/L (45-117); Total Protein 7.5 g/dL (6.4-8.2)
[2018-12-30 19:30] LABS: Creatine Kinase 67 U/L (39-308)
[2018-12-30] MEDS: Senna/Docusate Sodium 8.6/50 MG Tablet PO SCH (21:15)
[2018-12-30] MEDS: Sod Chloride 0.9% Inj 1,000 ML IV.CONT SCH (21:15)
[2018-12-31] MEDS: Sod Chloride 0.9% Inj 1,000 ML IV.CONT SCH (03:38)
[2018-12-31 07:52] LABS: Alanine Aminotransferase 27 U/L (12-78); Albumin 3.4 g/dL (3.4-5.0); Anion Gap 8 meq/L (5-15); Aspartate Aminotransferase 26 U/L (15-37); Blood Urea Nitrogen 15 mg/dL (7-18); Calcium 8.7 mg/dL (8.5-10.1); Carbon Dioxide 24.1 meq/L (21.0-32.0); Chloride 106 meq/L (98-107); Glomerular Filtration Rate Greater Than 89 mL/min (>89); Glucose,Random 80 mg/dL (74-106); Potassium 4.4 meq/L (3.5-5.1); Sodium 138 meq/L (136-145)
[2018-12-31 07:55] LABS: Alkaline Phosphatase 109 U/L (45-117); Total Protein 6.9 g/dL (6.4-8.2)
[2018-12-31 08:47] LABS: Baso % (Auto) 0.2 % (0.0-2.0); Eos # (Auto) 0.1 th/mm3 (0.0-0.4); Eos % (Auto) 0.7 % (0.0-4.0); Hematocrit 44.8 % (39.0-51.0); Hemoglobin 15.4 gm/dL (13.0-17.0); Lymph # (Auto) 0.9 th/mm3 (1.0-4.8); Lymph % (Auto) 10.5 % (9.0-44.0); Mean Corpuscular HGB Conc 34.4 % (32.0-36.0); Mean Corpuscular Hemoglobin 31.2 pg (27.0-34.0); Mean Corpuscular Volume 90.7 fL (80.0-100.0); Mono # (Auto) 0.8 th/mm3 (0.0-0.9); Mono % (Auto) 9.1 % (0.0-8.0); Neut # (Auto) 6.6 th/mm3 (1.8-7.7); Neut % (Auto) 79.5 % (16.0-70.0); Platelet Count 226 th/mm3 (150-450); Red Blood Count 4.93 mil/mm3 (4.50-5.90); Red Cell Distribution Width 13.4 % (11.6-17.2); White Blood Count 8.3 th/mm3 (4.0-11.0)
[2018-12-31] MEDS: Loratadine 10 MG Tablet PO SCH (10:08)
[2018-12-31] MEDS: ARIPiprazole 5 MG Tablet PO SCH (10:08)
[2018-12-31] MEDS: Senna/Docusate Sodium 8.6/50 MG Tablet PO SCH ×2 (10:08→22:37)
--- NOTE | 2018-12-31 11:43 | P.PNIM ---
Subjective Interval history: The patient appeared comfortable. He is nonverbal at baseline. He did not appear to be in distress. Physical Exam Vital signs: Vital Signs 12/30/18 12:57 12/30/18 20:00 12/31/18 00:00 Temperature 99 F Pulse Rate 104 H 89 Respiratory Rate 20 20 Blood Pressure 140/63 120/69 132/69 12/31/18 08:00 Temperature 98.7 F Pulse Rate 110 H Respiratory Rate 16 Blood Pressure 118/68 Intake & Output 12/30/18 12/31/18 12/31/18 18:59 06:59 18:59 Intake Total 240 / 240 Balance 240 / 240 Weight 54.431 kg 54.431 kg Intake: Oral 240 / 240 Other: # Voids 2 Date of Last Bowel Movement 12/31/18 Weight On Admission 54.431 kg Narrative: GENERAL: Mentally and physically disabled. In NAD. SKIN: Slightly raised, large reddened area to the left upper arm, extending to the left lateral trunk/flank area and slightly involving the left hip; moist and dry areas; warm to touch; seems to be tender to the touch; linear abrasions noted within the erythema. HEAD: Atraumatic. Normocephalic. EYES: Pupils equal and round. No scleral icterus. No injection or drainage. ENT: Mucosa pink and moist. Airway patent. NECK: Trachea midline. CARDIOVASCULAR: Regular rate. RESPIRATORY: No accessory muscle use. GASTROINTESTINAL: Not distended. MUSCULOSKELETAL: No obvious deformities. No clubbing. No cyanosis. No edema. NEUROLOGICAL: Awake and alert. Nonverbal. Moving upper and lower extremities. Results Labs CBC & Chem 7: 12/31/18 05:45 12/31/18 05:45 Labs: Microbiology 12/30/18 18:20 Blood - Peripheral Aerobic Blood Culture - Preliminary No growth in 1 day 12/30/18 18:20 Blood - Peripheral Anaerobic Blood Culture - Preliminary No growth in 1 day 12/30/18 18:39 Blood - Peripheral Aerobic Blood Culture - Preliminary No growth in 1 day 12/30/18 18:39 Blood - Peripheral Anaerobic Blood Culture - Preliminary No growth in 1 day Assessment and Plan Plan Rash Involving the left upper extremity and left flank. ? exfoliative dermatitis secondary to Celebrex use? WBC not elevated. Afebrile. ESR and CPK negative. CRP elevated at 3.7. -blood cultures x 2. -IVFs. -Triamcinolone cream. -pain control and Benadryl as needed. -DCF has started a case as there were concerns that the rash may be first or second degree reno. Case management has been consulted. Tachycardia Likely s/t rash or mild agitation. -IVFs. -Pain control. -check an EKG. Apert syndrome Chronic, nonverbal, lives in a senior care. -PT/OT/ST. -on pureed diet with honey thickened liquids. PPx: SCDs Discharge Planning: Await DCF eval. Case management assistance appreciated Progress Note: Quality VTE Deep Vein Thrombosis/Pulmonary Embolism Present on Admission: No
--- NOTE | 2018-12-31 14:04 | P.PNWCN ---
Wound Care Nurse Consult Description: Wound care consulted for wound management to arm, and abdomen by Dr. Alvarado. Communicated with: Spoke with bedside nurse Kimberly RN. Recommendation: 1. Apply Silvadene Cream BID to left arm and left flank. 2. Leave open to air. Additional information: Patient seen in CDU for consult to wound care for possible reno to left side of arm and chest. Wounds present as reno. Wound care recommends to continue with Silvadene cream to apply BID and leave open to air. Call placed to MD Dr. Alvarado who will order Silvadene. Bedside nurse given recommendations.
[2018-12-31 17:17] VITALS: TEMP 99
[2019-01-01 01:40] VITALS: RESP 18; O2SAT 95
[2019-01-01 08:37] VITALS: BP 116/65; PULSE 116
[2019-01-01] MEDS: ARIPiprazole 5 MG Tablet PO SCH (09:59)
[2019-01-01] MEDS: Senna/Docusate Sodium 8.6/50 MG Tablet PO SCH (09:59)
[2019-01-01] MEDS: Loratadine 10 MG Tablet PO SCH (09:59)
--- NOTE | 2019-01-01 12:04 | P.PNIM ---
Subjective Interval history: The patient was awake and alert. He is nonverbal. He did not appear to be in any distress. No overnight events reported. Discussed with nursing. Physical Exam Vital signs: Vital Signs 12/31/18 16:00 12/31/18 22:27 01/01/19 01:00 Temperature 99.0 F Pulse Rate 102 H 104 H Respiratory Rate 16 17 18 Blood Pressure 126/67 125/74 Pulse Oximetry 95 01/01/19 08:00 Temperature Pulse Rate 116 H Respiratory Rate 18 Blood Pressure 116/65 Pulse Oximetry Intake & Output 12/31/18 01/01/19 01/01/19 18:59 06:59 18:59 Intake Total 240 / 240 Balance 240 / 240 Intake: Oral 240 / 240 Other: # Voids 2 1 # Urine Diapers 1 Date of Last Bowel Movement 12/31/18 12/31/18 # Bowel Movements 1 1 Narrative: GENERAL: Mentally and physically disabled. In NAD. SKIN: Slightly raised, large reddened area to the left upper arm, extending to the left lateral trunk/flank area and slightly involving the left hip; linear abrasions noted within the erythema. Improving. HEAD: Atraumatic. Normocephalic. EYES: Pupils equal and round. No scleral icterus. No injection or drainage. ENT: Mucosa pink and moist. Airway patent. NECK: Trachea midline. CARDIOVASCULAR: Regular rate. RESPIRATORY: No accessory muscle use. GASTROINTESTINAL: Not distended. MUSCULOSKELETAL: No obvious deformities. No clubbing. No cyanosis. No edema. NEUROLOGICAL: Awake and alert. Nonverbal. Moving upper and lower extremities. Results Labs CBC & Chem 7: 12/31/18 05:45 12/31/18 05:45 Labs: Microbiology 12/30/18 18:20 Blood - Peripheral Aerobic Blood Culture - Preliminary No growth in 2 days 12/30/18 18:20 Blood - Peripheral Anaerobic Blood Culture - Preliminary No growth in 2 days 12/30/18 18:39 Blood - Peripheral Aerobic Blood Culture - Preliminary No growth in 2 days 12/30/18 18:39 Blood - Peripheral Anaerobic Blood Culture - Preliminary No growth in 2 days Assessment and Plan Plan Rash Involving the left upper extremity and left flank. Seems to be a burn. Wound nurse consult appreciated. Afebrile. ESR and CPK negative. CRP elevated at 3.7. -blood cultures x 2. NGTD. -S/p IVFs. -pain control and Benadryl as needed. -DCF has started a case as there were concerns that the rash may be first or second degree reno. Case management has been consulted. Cleared to return to assisted. -Continue Silvadene cream. -Complete course of Bactrim. -Follow-up with PCP. Tachycardia Likely s/t rash or mild agitation. -IVFs. -Pain control. -check an EKG. Apert syndrome Chronic, nonverbal, lives in a assisted. -PT/OT/ST. -on pureed diet with honey thickened liquids. PPx: SCDs Discharge Planning: D/c to assisted Progress Note: Quality VTE Deep Vein Thrombosis/Pulmonary Embolism Present on Admission: No
== END 2019-01-01 15:47 | disposition home or self-care (01) ==
LOC: NEDA 11:49 → NEPA 11:49 → NEDA 18:50 → NEPHCDU 19:03
PROVIDERS: ADMIT Hospitalist; ATTEND Hospitalist
DX: R00.0 Tachycardia, unspecified; J30.9 Allergic rhinitis, unspecified; Q87.0 Congenital malformation syndromes predominantly affecting facial appearance; G89.29 Other chronic pain; R21 Rash and other nonspecific skin eruption; Z79.899 Other long term (current) drug therapy; F42.9 Obsessive-compulsive disorder, unspecified
CPT/HCPCS: 16025; 80053; 82550; 85025; 85651; 85652; 86140; 87040; 92526; 92610; 96374; 97161; 97166; 99285; G0195; G0378; G8987; G8988; G8996; G8997; J1200; J7030